=== PATIENT | female | born 1950 | race Caucasian/White ===

== ENCOUNTER 2016-05-14 02:16 | Emergency (ER) | payer BC ==
[~2016-05-14] VITALS: Ht 172.7 cm; Wt 76.5 kg
[~2016-05-14 02:16] MED LIST: ASMANEX TW200 MICRO1 IH; ASMANEX TW200 MICROG IH; BENICAR HCT 401 EACH PO; FLAGYL500 MG PO; IMODIUM2 MG PO; NAPROXEN500 MG PO; NORVASC5 MG PO; PREMARIN0.3 MG PO; PROTONIX40 MG PO; TYLENOL325 M1 PO; Vitamin D, Drisdol PO
[2016-05-14] MEDS ORDERED: VALIUM5 MG PO (04:43)
[2016-05-14] MEDS ORDERED: NORCO 5/3251 TABLET PO (04:43)
[2016-05-14] MEDS ORDERED: MEDROL DOSEPAK4 MG PO (04:43)
[2016-05-14 05:08] VITALS: BP 158/78
== END 2016-05-14 05:09 | disposition home or self-care (01) ==
LOC: EME 02:16
DX: M54.2 Cervicalgia (principal); M62.838 Other muscle spasm; I10 Essential (primary) hypertension; J45.909 Unspecified asthma, uncomplicated
CPT/HCPCS: 72125; 99281; 99284; J1885